=== PATIENT | male | born 1955 | race African-American/Black ===

== ENCOUNTER 2018-06-06 08:49 | Day surgery (SDC) | payer BC ==
--- OUTSIDE RECORDS SUMMARY | 2018-06-06 08:51 | XMS REPORT | Clinical Summary ---
:1955 Author Organization [facility] Address [address] [place] [id number] Care Team Providers Name Role Phone Brenden Paz MD Primary Care Provider Allergies No Known Allergies Medications Medication Sig Dispensed Refills Start Date End Date Status KOMBIGLYZE XR TAKE BY MOUTH 2 0 04/20/2016 Active 2.5-1,000 mg tablet, TABLETS DAILY. ER multiphase 24 hr ramipril (ALTACE) 10 0 04/10/2016 Active MG capsule ULORIC 40 mg tablet 0 04/23/2016 Active CARTIA XT 300 mg 24 hr 0 05/11/2016 Active capsule colchicine 0.6 mg 0 04/23/2016 Active tablet Active Problems Problem Noted Date Stented coronary artery 06/09/2016 Coronary artery disease involving [place] coronary artery of [place] heart 06/09 without angina pectoris Essential hypertension 06/09/2016 Encounters Date Type Specialty Care Team Description 09/14/2017 Office Visit Cardiology Олег Cormier MD Coronary artery disease involving [place] coronary artery of [place] heart without angina pectoris (Primary Dx); Stented coronary artery after 06/05/2017 Social History Tobacco Use Types Packs/Day Years Used Date Former Smoker Sex Assigned at Date Recorded Not on file Job Start Date Occupation Industry Not on file Not on file Not on file Travel History Travel Start Travel End No recent travel history available. Last Filed Vital Signs Vital Sign Reading Time Taken Blood Pressure 143/73 09/14/2017 4:02 PM CDT Pulse 75 09/14/2017 4:02 PM CDT Temperature - - Respiratory Rate - - Oxygen Saturation - - Inhaled Oxygen Concentration - - Weight 87.5 kg (193 lb) 09/14/2017 4:02 PM CDT Height 170.2 cm (5' 7") 09/14/2017 4:02 PM CDT Body Mass Index 30.23 09/14/2017 4:02 PM CDT Plan of Treatment Health Maintenance Due Date Last Done Comments COLON CANCER SCREENING 02/06/2004 SHINGLES VACCINES (1 of 2) 02/06/2004 INFLUENZA VACCINE 12/22/2017 Results Not on fileafter 06/05/2017 Insurance Payer Benefit Plan / Group Subscriber ID Type Phone Address BCBS BCBS CHOICE PPO/F[employer]ER[employer] EMPL PPO xxxxxxxxx[address] (Home) [address] [place] [id number] Advance Directives Patient has advance care planning documents on file. For more information, please contact:Peter Macias[address] [place] [place] [address]
[2018-06-06 08:57] VITALS: O2SAT 100
[2018-06-06] MEDS ORDERED: DUOVISC 1 KIT OPTH ONE (09:09)
[2018-06-06] MEDS ORDERED: EPINEPHRINE/PF 1 MG/ML AMP ONE ×2 (09:09→09:10)
[2018-06-06] MEDS ORDERED: BALANCED SALT IRRIG PLAIN 500 ML BTL IRR ONE (09:09)
[2018-06-06] MEDS ORDERED: NS 0.9% VIAL 10 ML ONE (09:09)
[2018-06-06] MEDS ORDERED: MOXIFLOXACIN HCL 10 DROPS/ML **OR USE OPTH ONE (09:10)
[2018-06-06] MEDS ORDERED: BUPIVACAINE 0.25% PF 10 ML VIAL ONE (09:22)
[2018-06-06] MEDS ORDERED: CYCLOPENTOLATE 1% OPTH 2 ML ONE (09:22)
[2018-06-06] MEDS ORDERED: NA CHLORIDE 0.9% 500 ML ONE (09:22)
[2018-06-06] MEDS ORDERED: LIDOCAINE 2% MPF 5 ML VIAL ONE ×2 (09:22→10:32)
[2018-06-06] MEDS ORDERED: PHENYLEPHRINE 10% OPTH 5ML ONE (09:23)
[2018-06-06] MEDS ORDERED: CYCLOPENTOLATE 1% OPTH 2 ML OPTH ONE ×2 (09:25→09:30)
[2018-06-06] MEDS ORDERED: PHENYLEPHRINE 10% OPTH 5ML OPTH ONE ×2 (09:25→09:30)
[2018-06-06] MEDS: TETRACAINE HCL 0.5% 2ML OPTH ONE ×2 (10:14→10:27)
[2018-06-06] MEDS ORDERED: PROPOFOL 200 MG/20 ML VIAL IV ONE (10:32)
--- NOTE | 2018-06-06 11:05 | P.BOP ---
Preoperative diagnosis: Nuclear sclerotic, cortical and posterior subcapsular cataract OD Postoperative diagnosis: Same Primary procedure: Phacoemulsification with IOL OD Estimated blood loss: None Anesthesia: Local Complications: None Implants: ZCB00 +24.0 Transferred to: Other (Day surgery) Condition: Good
[2018-06-06 12:22] VITALS: BP 135/68; TEMP 97.3
--- NOTE | 2018-06-06 22:55 | OP ---
Date of Procedure: 06/06/2018 Surgeon: Estee Calles MD Anesthesiologist: Jessica Banuelos CRNA and Lior Swan MD. Preoperative Diagnoses: Nuclear sclerotic, cortical cataract, and posterior subcapsular cataract of right eye. Operation Performed: Phacoemulsification with intraocular lens implant, right eye. Anesthesia: Per cataract surgery. Complications: None. Description Of Procedure: In day surgery, the patient was prepped with Betadine and draped. A conju nctival incision was made in the inferior nasal quadrant with Beto scissors. A sub-Tenon block c onsisting of a 1:1 mixture of 2% Xylocaine and 0.25% bupivacaine was placed through the conjunctival incision with a blunt cannula. A Honan balloon was placed over the eye and the patient was transferr ed to the operating room. In the operating room the patient was prepped and draped in the usual sterile fashion for ophthalmic surgery. A lid speculum was placed in the right eye. Two paracentesis sites were made superiorly an d inferiorly in the limbal cornea. Viscoat was placed in the anterior chamber and a crescent blade w as used to make a corneal groove and tunnel, and a keratome was used to enter the anterior chamber. Provisc was placed in the anterior chamber and a 360 degree capsulotomy was performed with a cystitom e. The lens was hydrodissected with BSS and rotated freely. The lens was removed with a stop and ch op technique. 9.65 phaco CDE was used to remove the lens. Residual cortex was removed with the irri gation and aspiration. Provisc was placed in the capsular bag. A ZCB00 +24.0 lens was placed in the capsular bag without complications. Irrigation and aspiration were used to remove residual viscoela stic. The paracentesis sites were hydrated with BSS. The wound and paracentesis sites were inspecte d and found to be watertight. Vigamox 0.07 cc was placed intracamerally at the end of the procedure. The eye was irrigated with balanced salt solution. The eye was patched with a soft cotton patch an d Flores metal shield. The patient was returned to day surgery in good condition. Comments: Mr. Vargas is discharged to home in good condition and is to follow up with Dr. Marli demarco the morning. PATRICIA/IVANA Voice ID: [id number] Report ID: [id number]
== END 2018-06-06 11:44 | disposition home or self-care (01) ==
LOC: OR 08:49
PROVIDERS: ATTEND Ophthalmology Retina Specialist
PROC: 08RJ3JZ Replacement of Right Lens with Synthetic Substitute, Percutaneous Approach (ICD-10-PCS; principal; 2018-06-06 10:00)
DX: H25.11 Age-related nuclear cataract, right eye (principal); H25.011 Cortical age-related cataract, right eye; H25.041 Posterior subcapsular polar age-related cataract, right eye; E11.9 Type 2 diabetes mellitus without complications; I10 Essential (primary) hypertension; Z95.5 Presence of coronary angioplasty implant and graft; Z79.82 Long term (current) use of aspirin; Z83.3 Family history of diabetes mellitus; Z82.49 Family history of ischemic heart disease and other diseases of the circulatory system; Z81.2 Family history of tobacco abuse and dependence
CPT/HCPCS: 82962; J0171; J2704